=== PATIENT | female | born 1945 | race Caucasian/White ===

== ENCOUNTER → 2017-08-17 | Outpatient (CLI) | payer OTHER | LOC: CIMAGING 08:42 | PROVIDERS: ATTEND Family Medicine | DX: M19.041 Primary osteoarthritis, right hand (principal); M79.644 Pain in right finger(s) | CPT/HCPCS: 73140-PO ==

== ENCOUNTER → 2018-05-24 | Outpatient (CLI) | payer OTHER | LOC: SBRMNEURO 21:30 | PROVIDERS: ATTEND Psychiatry & Neurology Sleep Medicine | DX: G47.33 Obstructive sleep apnea (adult) (pediatric) (principal); G47.31 Primary central sleep apnea ==

== ENCOUNTER → 2018-06-28 | Outpatient (CLI) | payer OTHER | DX: Z12.31 Encounter for screening mammogram for malignant neoplasm of breast (principal) ==

== ENCOUNTER → 2018-12-25 | Outpatient (CLI) | payer OTHER | LOC: CIMAGING 10:19 | PROVIDERS: ATTEND Family Medicine | DX: I65.23 Occlusion and stenosis of bilateral carotid arteries (principal) | CPT/HCPCS: 93880-PO ==

== ENCOUNTER → 2019-02-26 | Outpatient (CLI) | payer OTHER | LOC: CIMAGING 19:33 | PROVIDERS: ATTEND Urology | DX: Z87.442 Personal history of urinary calculi (principal); Z96.0 Presence of urogenital implants | CPT/HCPCS: 74018-PO ==